=== PATIENT | female | born 1960 | race Caucasian/White ===

== ENCOUNTER 2017-06-07 16:54 | Emergency (ER) | payer OTHER ==
[~2017-06-07] VITALS: Wt 61.0 kg
--- NOTE | 2017-06-07 17:45 | RADRPT ---
PROCEDURE: XR Chest. CLINICAL INDICATION: Chest pain, altered mental status TECHNIQUE: AP view of the chest was performed. COMPARISON: None FINDINGS: Mild cardiomegaly and vascular congestion are present. There are surgical clips in the left arm. N o acute infiltrate. No signs of pleural fluid or pneumothorax are seen. The osseous structures and s oft tissues are unremarkable. IMPRESSION: Mild cardiomegaly, vascular congestion, and surgical clips in the left arm. No acute infiltrate. RPTAT: QQ .Tisha Olivas MD, MD Date Time Electronically viewed and signed by .Tisha Olivas MD, MD on 06/07/2017 17:44 .F/
--- NOTE | 2017-06-07 18:01 | RADRPT ---
PROCEDURE: CT Brain without contrast. CLINICAL INDICATION: Altered mental status. TECHNIQUE: A CT of the brain was performed utilizing axial sections from the skull base through th e vertex without contrast. Multiplanar re-formations were generated. Images were reviewed on a high- resolution PACS workstation. CTDIvol: 43.30 mGy. DLP: 859.76 mGy-cm. One or more of the following dose reduction techniques were used: - Automated exposure control. - Adjustment of the mA and/or kV according to patient size. - Use of iterative reconstruction technique. COMPARISON: None available FINDINGS: There is mild generalized volume loss. No hydrocephalus is seen. There is no mass effect. No acute intracranial hemorrhage is identified. There is no extra-axial collection. No CT evidence of acute infarction is identified. There is patchy low attenuation in the supratentorial white matter, a non specific finding which most likely represents the sequela of mild chronic microvascular ischemic dis ease. There are minimal atherosclerotic arterial calcifications. There is no significant mucosal disease in the paranasal sinuses. The visualized mastoid air cells a re clear. The ossesous structures are unremarkable. The extracranial soft tissues are unremarkable. IMPRESSION: 1. No acute intracranial pathology. 2. Mild generalized volume loss. 3. Mild chronic microvascular ischemic changes. RPTAT: HTAR .Obed Coates MD, Date Time Electronically viewed and signed by .Obed Coates MD, MD on 06/07/2017 18:00 .R/
[2017-06-07 18:39] LABS: BASOPHIL # 0.1 10^3/ul (0.0-0.1); BASOPHILS % 0.7 % (0.0-2.0); EOSINOPHILS # 0.2 10^3/ul (0.0-0.5); EOSINOPHILS % 2.7 % (0.0-7.0); HEMATOCRIT 32.8 % (37.0-47.0); HEMOGLOBIN 10.4 g/dl (12.0-16.0); LYMPHOCYTES # 1.3 10^3/ul (0.8-2.9); LYMPHOCYTES % 15.7 % (15.0-51.0); MEAN CORPUSCULAR HEMOGLOBIN 29.9 pg (29.0-33.0); MEAN CORPUSCULAR HGB CONC 31.7 g/dl (32.0-37.0); MEAN CORPUSCULAR VOLUME 94.3 fl (82.0-101.0); MEAN PLATELET VOLUME 11.3 fl (7.4-10.4); MONOCYTE # 0.6 10^3/ul (0.3-0.9); MONOCYTES % 7.4 % (0.0-11.0); PLATELET COUNT 145 10^3/UL (140-415); RED BLOOD COUNT 3.48 10^6/ul (4.20-5.40); RED CELL DISTRIBUTION WIDTH 15.2 % (11.5-14.5); WHITE BLOOD COUNT 8.2 10^3/ul (4.8-10.8)
[2017-06-07 19:00] LABS: LACTIC ACID 0.9 mmol/L (0.5-2.0)
[2017-06-07 19:02] LABS: AMMONIA < 9 umol/l (9-30)
[2017-06-07 19:03] LABS: ALANINE AMINOTRANSFERASE 33 IU/L (13-69); ALBUMIN 4.5 g/dl (3.3-4.9); ALKALINE PHOSPHATASE 164 IU/L (42-121); ANION GAP 16 (8-16); ASPARTATE AMINO TRANSFERASE 34 IU/L (15-46); BILIRUBIN,INDIRECT 0.4 mg/dl (0-1.1); BILIRUBIN,TOTAL 0.4 mg/dl (0.2-1.3); BLOOD UREA NITROGEN 14 mg/dl (7-20); CALCIUM 10.5 mg/dl (8.4-10.2); CARBON DIOXIDE 34 mmol/L (21-31); CHLORIDE 90 mmol/L (97-110); CREATININE 3.29 mg/dl (0.44-1.00); GLUCOSE 108 mg/dl (70-220); POTASSIUM 3.5 mmol/L (3.5-5.1); SODIUM 136 mmol/L (135-144); TOTAL PROTEIN 7.5 g/dl (6.1-8.1)
[2017-06-07 19:04] LABS: ACETAMINOPHEN < 10.0 ug/ml (10.0-30.0); ETHANOL < 10.0 mg/dl; SALICYLATE < 1.0 mg/dl (5.0-30.0)
[2017-06-07] MEDS ORDERED: hydrALAzine 20 MG INJ IV ONE (19:30)
--- NOTE | 2017-06-07 19:30 | ERD ---
ER Documentation Chief Complaint Date/Time DATE: 06/07/17 TIME: 19:23 Chief Complaint ONSET 30 MIN STORE HOST OF LETHARGIC AND CONFUSED . BS 109 ON ARRIVAL. NO TRAUMA HPI This is a 56-year-old female who presents to the emergency room from her dialysis center for evaluation of confusion. This patient is unable to give a detailed history at this time given her clinical condition. The patient was transferred by EMS was stated this patient has been confused for approximately 30 minutes from her dialysis center. She did partially complete dialysis. The patient is able to state her name and where she is however is refusing to answer anymore questions. ROS All systems reviewed and are negative except as per history of present illness. PMhx/Soc Medical and Surgical Hx: Unable to obtain Hx Miscellaneous Medical Probl: Yes (DIALYSIS PT) Hx Alcohol Use: No Hx Substance Use: No Hx Tobacco Use: No Smoking Status: Never smoker Physical Exam Vitals Vital Signs Date Time Temp Pulse Resp B/P Pulse Ox O2 Delivery O2 Flow Rate FiO2 06/07/17 17:09 98.1 69 22 207/92 98 Physical Exam INITIAL VITAL SIGNS: Reviewed by me GENERAL: The patient is well developed and appropriate for usual state of health in no apparent distress HEENT: Pupils equal, round, and reactive to light. EOMI. There is no scleral icterus. NECK: C-spine is soft and supple, there is no meningismus. There is no cervical lymphadenopathy. LUNGS: Clear to auscultation bilaterally. There are no rales, wheezes or rhonchi. HEART: Regular rate and rhythm, no murmurs, clicks, rubs or gallops. ABDOMEN: Soft, non-tender, non-distended. There are bowel sounds in all four quadrants. No rebound or guarding. EXTREMITIES: There is no peripheral cyanosis or edema. No focal swelling or erythema. NEUROLOGICAL: The patient moves all four extremities with 5/5 strength. Cranial nerves II - XII are intact. Normal gait. Alert and oriented SKIN: Left upper extremity AV fistula there is no apparent rash or petechiae. HEME/LYMPHATIC: There is no evidence of excessive bruising or lymphedema. PSYCHIATRIC: The patient appears agitated Result Diagram: 06/07/17 1830 06/07/17 1830 Results 24 hrs Laboratory Tests Test 06/07/17 18:30 White Blood Count 8.210^3/ul Red Blood Count 3.4810^6/ul Hemoglobin 10.4g/dl Hematocrit 32.8% Mean Corpuscular Volume 94.3fl Mean Corpuscular Hemoglobin 29.9pg Mean Corpuscular Hemoglobin Concent 31.7g/dl Red Cell Distribution Width 15.2% Platelet Count 15303^3/UL Mean Platelet Volume 11.3fl Neutrophils % 73.0% Lymphocytes % 15.7% Monocytes % 7.4% Eosinophils % 2.7% Basophils % 0.7% Nucleated Red Blood Cells % 0.0/100WBC Neutrophils # (Manual) 6.010^3/ul Lymphocytes # 1.310^3/ul Monocytes # 0.610^3/ul Eosinophils # 0.210^3/ul Basophils # 0.110^3/ul Nucleated Red Blood Cells # 0.010^3/ul Sodium Level 136mmol/L Potassium Level 3.5mmol/L Chloride Level 90mmol/L Carbon Dioxide Level 34mmol/L Anion Gap 16 Blood Urea Nitrogen 14mg/dl Creatinine 3.29mg/dl Glucose Level 108mg/dl Lactic Acid Level 0.9mmol/L Calcium Level 10.5mg/dl Total Bilirubin 0.4mg/dl Direct Bilirubin 0.00mg/dl Indirect Bilirubin 0.4mg/dl Aspartate Amino Transf (AST/SGOT) 34IU/L Alanine Aminotransferase (ALT/SGPT) 33IU/L Alkaline Phosphatase 164IU/L Ammonia < 9umol/l Total Protein 7.5g/dl Albumin 4.5g/dl Globulin 3.00g/dl Albumin/Globulin Ratio 1.50 Salicylates Level < 1.0mg/dl Acetaminophen Level < 10.0ug/ml Ethyl Alcohol Level < 10.0mg/dl Procedures/MDM Chest X-ray 1V Interpreted by me: Soft Tissue: No acute abnormalities Bones: No acute abnormalities Mediastinum/Cardiac Silhouette/Lungs: Pulmonary vascular congestion, no infiltrate CT brain without:1. No acute intracranial pathology. 2. Mild generalized volume loss. 3. Mild chronic microvascular ischemic changes. EKG: Rate/Rhythm: [Normal Sinus Rhythm] QRS, ST, T-waves: [No changes consistent w/ acute ischemia] Impression: [No evidence of ischemia or arrhythmia] This 56-year-old female presents to the ER for evaluation of altered mental status. When I evaluated patient she was not answering any of my questions. This patient's son and daughter at bedside. This patient underwent lab work and a CAT scan which did not show any acute abnormality. This patient is now answering questions and stated that she was very upset because she does not like the people at her dialysis center. The patient likely had a stress reaction. She displayed no focal neurological deficits whatsoever, she was alert and oriented to person and place however she did appear upset. This patient will be discharged into the care of family at this time with instructions to return to the ER at any moment for reevaluation if this patient were to become altered in any way. Both the patient and the patient's family members are okay with her plan of care and feel comfortable with her disposition.Patient was also found to be hypertensive and was given 10 mg of hydralazine Departure Diagnosis: Primary Impression: Stress reaction Additional Impressions: Altered mental status End stage renal disease Condition: Stable KARIE GRAVES DO Jun 07, 2017 19:30
[2017-06-07 20:23] VITALS: BP 178/80; PULSE 69; RESP 16
== END 2017-06-07 20:28 | disposition home or self-care (01) ==
LOC: E/R 16:54
DX: F43.0 Acute stress reaction (principal); R41.82 Altered mental status, unspecified; N18.6 End stage renal disease; Z99.2 Dependence on renal dialysis
CPT/HCPCS: 70450; 71010; 80053; 80306; 82140; 83605; 85025; 93005; 96374; 99285; J0360

== ENCOUNTER 2017-11-18 22:14 | Observation (INO) | END 2017-11-23 09:22 | disposition home or self-care (01) ==